=== PATIENT | female | born 1990 | race African-American/Black ===

== ENCOUNTER 2024-03-11 09:38 | Emergency (ER) | payer SELFPAY ==
--- NOTE | ~2024-03-11 | XR_ITS ---
EXAMINATION: XR chest 2V DATE: 03/11/2024 10:42 INDICATION: Productive cough. Upper respiratory infection. TECHNIQUE: Frontal and lateral views of the chest were obtained. COMPARISON: None. FINDINGS: There is no pneumonia, pleural effusion, or pneumothorax. The heart size is normal. IMPRESSION: 1. No acute cardiopulmonary disease. Reviewed, dictated and finalized at location A.
[2024-03-11 09:47] VITALS: BP 149/89; PULSE 88; RESP 14; TEMP 36.8; O2SAT 100
--- NOTE | 2024-03-11 10:06 | ED.URI ---
HPI - URI/Sore Throat General Chief Complaint: Upper Respiratory Infection Stated Complaint: sore throat and thick mucus Time Seen by Provider: 03/11/24 09:50 Source: patient Mode of arrival: ambulatory Limitations: no limitations History of Present Illness HPI Narrative: patient is a 34-year-old female who presents the ED with report of URI symptoms. Patient reports having rhinorrhea, congestion, sore throat, cough, intermittent nausea for the last 2 days. She reports production of green/ brown/ blas mucous. She states 1 of her coworkers tested positive for COVID-19 over the weekend. Patient has been taking Mucinex for her symptoms with minimal relief. Has not taken anything for symptoms today. Denies fevers, CP, significant SOB. Related Data Allergies Allergy/AdvReac Type Severity Reaction Status Date / Time No Known Allergies Allergy Verified 03/11/24 09:40 Review of Systems Review of Systems: All systems reviewed & are unremarkable except as noted in HPI. All systems reviewed & are unremarkable except as noted in HPI and below Exam Narrative: GENERAL: Well appearing, morbidly obese with BMI of 43.1, non-toxic, in no acute distress. HEAD: Normocephalic, atraumatic. ENT: Minimal posterior pharynx erythema. No tonsillar hypertrophy or exudate. Uvula midline. No stridor or trismus. RESPIRATORY: Airway patent, respirations nonlabored. Clear to auscultation bilaterally, no rales, rhonchi, wheezing. no significant focal lung sounds. CARDIOVASCULAR: Regular rate and rhythm without murmurs, rubs, or gallops. MUSCULOSKELETAL: Moves all extremities. No gross deformities. SKIN: Warm, dry, normal color. NEURO: A&O X3. Speech clear. PSYCHIATRIC: Appropriate mood and affect. Normal interaction. Course Vital Signs Vital signs: Vital Signs Temperature 98.3 F 03/11/24 09:47 Pulse Rate 88 03/11/24 09:47 Respiratory Rate 14 03/11/24 09:47 Blood Pressure 149/89 H 03/11/24 09:47 Pulse Oximetry 100 03/11/24 09:47 Oxygen Delivery Room Air 03/11/24 09:47 Temperature 98.3 F 03/11/24 09:47 Pulse Rate 65 03/11/24 11:06 Respiratory Rate 16 03/11/24 11:06 Blood Pressure 130/84 03/11/24 11:06 Pulse Oximetry 100 03/11/24 11:06 Oxygen Delivery Room Air 03/11/24 09:47 MDM - URI/Sore Throat MDM Narrative Medical decision making narrative: Patient presented to ED with 2 day history of URI symptoms, recent exposure to COVID. Vital signs are stable upon arrival. No tachycardia, hypoxia, afebrile. Viral swabs are negative. Strep testing negative. Chest x-ray is clear. Patient denies significant shortness of breath. No chest pain. No evidence of systemic infection to suggest need for further labs or imaging at this time. She is PERC negative. No evidence of DVT, [employer], respiratory compromise on exam. Discussed likelihood of viral URI. Discussed management of such. Will prescribe Tessalon Perles. Patient given return precautions. She agrees with plan. Discharged in stable condition. Given work note. Medical Records Attestation: I reviewed the patient's medical records. Lab Data Attestation: I reviewed the patient's lab results. Labs: Lab Results 03/11/24 Range/Units 09:59 Influenza A (RT-PCR) Negative (Negative) Influenza B (RT-PCR) Negative (Negative) RSV (RT-PCR) Negative (Negative) SARS-CoV-2 RNA (RT-PCR) Negative (Negative) Group A Strep (PCR) Not detected (Negative) Imaging Data Attestation: I personally reviewed and interpreted this imaging study as follows: Discharge Plan Discharge Clinical Impression: Upper respiratory infection Qualifiers: URI type: unspecified URI Qualified Code(s): J06.9 - Acute upper respiratory infection, unspecified Patient Disposition: Home, Self-Care Condition: Stable Instructions: Antibiotic Form, Upper Respiratory Infection (ED), Viral Syndrome (ED), Cold Symptoms (ED) Additional Instructi
[2024-03-11 10:32] LABS: Strep Group A RT-PCR NOT DETECTED (Negative)
[2024-03-11 10:43] LABS: Influenza A QL RT-PCR Negative (Negative); Influenza B QL RT-PCR Negative (Negative); RSV RNA, RT-PCR Negative (Negative); SARS-CoV-2 RNA PCR Negative (Negative)
[2024-03-11 11:06] VITALS: BP 130/84; PULSE 65; RESP 16; O2SAT 100
== END 2024-03-11 11:12 | disposition home or self-care (01) ==
PROVIDERS: Emergency Provider Physician Assistant
DX: J06.9 Acute upper respiratory infection, unspecified (principal); Z20.822 Contact with and (suspected) exposure to COVID-19
CPT/HCPCS: 71046; 87637; 87651; 99283